=== PATIENT | male | born 1945 | race Caucasian/White ===

== ENCOUNTER → 2017-03-21 | Outpatient (CLI) | payer MEDICARE, BC ==
--- NOTE | 2017-03-21 14:21 | CONS ---
CONSULTATION DATE OF SERVICE: 03/21/2017 A 72-year-old gentleman who has been evaluated in the Sleep Center for possible obstructive sleep apnea-hypopnea syndrome. HISTORY OF PRESENT ILLNESS/SLEEP WAKE EVALUATION: Patient usual sleep schedule from 11:30 p.m. until 7:30 a.m. basically 7 days a week. No problem with falling asleep, although he has TV set in bedroom. According to his , he snores. Has episodes of stopped breathing during the sleep. He wakes up from sleep 2 times with nocturia. His also mentioned that he has sometimes significant movements of his legs during the sleep. [place] Sleepiness Scale increased to 10. He may fall asleep during the day, has problem with memory, debility, claustrophobia. PAST MEDICAL HISTORY: Positive for hypertension, hyperlipidemia, diabetes mellitus, acid reflux. PAST SURGICAL HISTORY: Aortic aneurysm repair, aortic valve replacement, carotid tumor removed, lung surgery for pneumoniae and spontaneous pneumothorax at the time when he had pneumonia. MEDICATIONS: Lipitor, aspirin, lisinopril, amlodipine, metoprolol, metformin, ranitidine. SOCIAL HISTORY: Positive for smoking in the past, quit about 25 years ago. Alcohol consumption occasional. FAMILY HISTORY: Hypertension, heart problems, hyperlipidemia, sleep apnea, snoring, diabetes, cancer. REVIEW OF SYSTEMS: Awakenings from sleep, sleepiness during the day. PHYSICAL EXAM: A gentleman without distress. BP 131/67, HR 68, RR 16, height 5, 7-1/2, weight 239, BMI 36.8, temp 98.0, oxygen desaturation at room air 95%. OROPHARYNX: Extremely low position of soft palate, Mallampati 4. Some restriction of nasal breathing. Wide neck 17-1/2 inches in circumference. Scar on the chest after the surgery. ABDOMEN: Obese. EXTREMITIES: 1+ ankle edema. HEART S1, S2 regular. No murmurs, gallops, or rubs. TRAVELING ENGINEER Awake, alert, and oriented X3. Cranial nerves 2 to 7 intact. There is no fasciculation or atrophy. noted. No focal deficits observed. IMPRESSION: 1. Snoring, witnessed episodes of stopped breathing during the sleep. Extremely low position of soft palate, wide neck, sleepiness. [place] Sleepiness Scale is 10. Obstructive sleep apnea-hypopnea syndrome. 2. Obesity; body mass index of 36.8. 3. Hypertension. 4. Hyperlipidemia. 5. Diabetes mellitus. 6. Acid reflux. 7. Status post aortic aneurysmal repair. 8. Status post aortic valve replacement. 9. Status post carotid tumor removed. 10.History of pneumonia with pneumothorax, status post surgical treatment about 25 years ago. PLAN: 1. Polysomnography for evaluation of patient's breathing during sleep. 2. CPAP/BiPAP titration if sleep study confirms obstructive sleep apnea-hypopnea syndrome. 3. Preferable position during sleep on the side. 4. No driving if patient feels any sleepiness. Patient is aware of civil and criminal liability for unsafe driving. 5. I will see patient for follow up visit to explain results of testing and following plan. Thank you very much for referring this patient for consultation. Sincerely, Toño Banerjee MD, PhD, FAASM Diplomat of [place] Board [employer] Specialties [place] Board of Internal Medicine Gear Design Engineer of [facility] [place] MMODL / JONNATHANN: [id number] /
== END | disposition home or self-care (01) ==
LOC: SLEEP 13:12
PROVIDERS: ATTEND Internal Medicine
DX: G47.33 Obstructive sleep apnea (adult) (pediatric) (principal); E66.9 Obesity, unspecified; I10 Essential (primary) hypertension; E78.5 Hyperlipidemia, unspecified; E11.9 Type 2 diabetes mellitus without complications; K21.9 Gastro-esophageal reflux disease without esophagitis; Z68.36 Body mass index [BMI] 36.0-36.9, adult; Z98.890 Other specified postprocedural states
CPT/HCPCS: 99211

== ENCOUNTER 2017-05-17 08:02 | Day surgery (SDC) | payer MEDICARE, BC ==
[2017-05-15 16:25] VITALS: BMI 34.4
[~2017-05-17 08:02] MED LIST: LACTATED RINGERS 1,000 ML IV SCH; LIDOCAINE 1% 20 ML VIAL (10MG/ML) FOR IV START INTRADERMA PRN
[2017-05-17 08:26] VITALS: TEMP 99
[2017-05-17] MEDS ORDERED: PROPOFOL 10 MG/ML 20 ML VIAL IV ONE (08:44)
[2017-05-17] MEDS ORDERED: MIDAZOLAM 2 MG/2 ML VIAL ONE (08:44)
[2017-05-17] MEDS ORDERED: fentaNYL (PF) 50 MCG/ML 2 ML AMP ONE (08:44)
[2017-05-17 08:50] LABS: Glucose,Whole Blood 140 mg/dL (75-99)
--- NOTE | 2017-05-17 09:06 | P.PCN ---
Date of Procedure: 05/17/17 Procedure(s) Performed: BRIEF HISTORY: Patient is a 72-year-old pleasant male, scheduled for an elective colonoscopy as a part of screening for colorectal neoplasia. Last colonoscopy was 10 years ago. PROCEDURE PERFORMED: Colonoscopy with snare polypectomy. PREOPERATIVE DIAGNOSIS: Screening for colon cancer. IV sedation per Anesthesia. PROCEDURE: After informed consent was obtained, the patient, was brought into the endoscopy unit. IV sedation was administered by Anesthesia under continuous monitoring. Digital rectal examination was normal. Initially the Olympus CF- 160 flexible video colonoscope was then inserted in the rectum, gradually advanced into the cecum without any difficulty. Careful examination was performed as the scope was gradually being withdrawn. Ileocecal valve and the appendiceal orifice were visualized and appeared normal. Prep was excellent. Mucosa of the cecum, ascending colon, transverse colon, descending colon, sigmoid colon, appeared normal. In the distal sigmoid colon there was 2 polyps measuring 5 mm and 1 cm in size both of which were removed by snare polypectomy. The rectum appeared normal. Retroflexion was performed in the rectum and no lesions were seen. The patient tolerated the procedure well. IMPRESSION: 5 mm and 1 cm distal sigmoid colon polyp status post polypectomy Rest of the colon appeared normal RECOMMENDATIONS: Findings of this examination were discussed with the patient as well as his family. He was advised to follow with the biopsy results. If the biopsy shows a tubular adenoma, he can have a repeat colonoscopy in 3-5 years
[2017-05-17 09:24] VITALS: BP 133/82; PULSE 72; RESP 18
== END 2017-05-17 09:53 | disposition home or self-care (01) ==
LOC: ORWHC2ENDO 08:02
PROVIDERS: ATTEND Internal Medicine Gastroenterology
DX: Z12.11 Encounter for screening for malignant neoplasm of colon (principal); D12.5 Benign neoplasm of sigmoid colon; K21.9 Gastro-esophageal reflux disease without esophagitis; E11.9 Type 2 diabetes mellitus without complications; G47.33 Obstructive sleep apnea (adult) (pediatric); I10 Essential (primary) hypertension; E78.5 Hyperlipidemia, unspecified; Z95.2 Presence of prosthetic heart valve; Z79.84 Long term (current) use of oral hypoglycemic drugs; Z79.899 Other long term (current) drug therapy; Z79.82 Long term (current) use of aspirin; Z99.89 Dependence on other enabling machines and devices
CPT/HCPCS: 88305; 45385; J2250; J3010; J2704

== ENCOUNTER → 2017-08-08 | Outpatient (CLI) | payer MEDICARE, BC ==
--- NOTE | 2017-08-08 14:08 | SFUN ---
SLEEP CENTER FOLLOW UP NOTE DATE OF SERVICE: 08/08/2017 A 72-year-old gentleman who has been followed in the Sleep Center for treatment of obstructive sleep apnea-hypopnea syndrome. Recently patient had diagnostic sleep study and CPAP and then BiPAP titration. He received his on BiPAP unit. I discussed results of the sleep studies with patient in details. This is his first visit with his BiPAP unit. He is able to use machine every night without significant problems, feels better during the sleep and during the day. I checked his BiPAP unit, pressure is 10/6 cm of water, usage is 29/30 nights more than 4 hours. Average usage is 7.1 hours per night which is perfect. Leak is only 10 L/minute which is still within normal range. Apnea-hypopnea index for the last month 1.6, which is normal. MEDICATIONS: Lipitor, aspirin, lisinopril, amlodipine, metoprolol, Ranitidine. PHYSICAL EXAM: Patient in no distress, BP 130/70, HR 58, RR 16, weight 226, temp 97.3, oxygen saturation at room air 95%. OROPHARYNX: Extremely low position of soft palate. ABDOMEN: Slightly obese. Neck Supple, no JVD. Thyroid is not palpable. LUNGS Clear to percussion and to auscultation. Good air exchange. No wheezing or rhonchi. HEART S1, S2 regular. No murmurs, gallops, or rubs. EXTREMITIES No clubbing or cyanosis. SEXUAL ASSAULT NURSE Awake, alert, and oriented X3. Cranial nerves 2 to 7 intact. There is no fasciculation or atrophy. noted. No focal deficits observed. IMPRESSION: 1. Severe obstructive sleep apnea-hypopnea syndrome; apnea-hypopnea index 40.8 with oxygen desaturation to 75.6% on control with CPAP and BiPAP 10/6 cm of water. Patient demonstrated practically 100% compliance with treatment, benefitting from treatment. 2. Hypertension. 3. Hyperlipidemia. 4. Diabetes mellitus. 5. Acid reflux. 6. Status post aortic aneurysm repair. 7. Status post aortic valve replacement. 8. Many years ago pneumoniae with pneumothorax. 9. Status post carotid tumor removed. PLAN: 1. Patient will continue to use BiPAP equipment every night for the whole night. 2. Losing weight. 3. Sleep hygiene with regular time bed for at least 8 hours. 4. No driving if feeling any sleepiness. 5. Will follow with prescription supplies for mask, tube, filters. 6. Followup visit in 10 months or earlier if patient has any problems. Thank you very much for allowing me to participate in the management of your patient. Sincerely, Toño Banerjee MD, PhD, FAASM Diplomat of [place] [employer] Specialties [place] Board of Internal Medicine Tailing Machine Operator of [facility] [place] MMODL / JONNATHANN: [id number] /
== END | disposition home or self-care (01) ==
LOC: SLEEP 13:03
PROVIDERS: ATTEND Internal Medicine
DX: G47.33 Obstructive sleep apnea (adult) (pediatric) (principal); I10 Essential (primary) hypertension; E78.5 Hyperlipidemia, unspecified; E11.9 Type 2 diabetes mellitus without complications; K21.9 Gastro-esophageal reflux disease without esophagitis; Z99.89 Dependence on other enabling machines and devices; Z79.899 Other long term (current) drug therapy; Z79.82 Long term (current) use of aspirin; Z98.890 Other specified postprocedural states; Z95.4 Presence of other heart-valve replacement; Z86.018 Personal history of other benign neoplasm

== ENCOUNTER → 2018-08-07 | Outpatient (CLI) | payer MEDICARE, BC ==
--- NOTE | 2018-08-07 11:17 | PN ---
PROGRESS NOTE DATE OF SERVICE: 08/07/2018 73-year-old gentleman has been followed in Sleep Center for treatment of severe obstructive sleep apnea-hypopnea syndrome. Patient successfully continued to use his BiPAP equipment every night without problems related to mask fitting, pressure or humidification. Very rarely, according to his , he has slight snoring. [place] Sleepiness Scale today is 5, which is normal. I checked his BiPAP unit pressure is 10/6 cm of water. Usage is 30/30 nights more than 4 hours. Average usage is 6.8 hours. Leak is 12 L/minute, which is normal range. Apnea-hypopnea index for the last month to 2.9, which is normal. MEDICATIONS: Lisinopril, amlodipine, metoprolol, Ranitidine, Lipitor, aspirin and Metformin. PHYSICAL EXAM: Patient in no distress. VITAL SIGNS: BP 143/62, HR 72, RR 16, height 5 feet 7 inches, weight 237 pounds. Patient increased his weight of 11 pounds comparing with last year visit. Body mass index 36.9, temperature 98.0, oxygen saturation at room air 96%. HEENT: Oropharynx extremely low position of soft palate. NECK Supple, no JVD. Thyroid is not palpable. LUNGS Clear to percussion and to auscultation. Good air exchange. No wheezing or rhonchi. HEART S1, S2 regular. No murmurs, gallops, or rubs. ABDOMEN: Slightly obese. Soft and nontender. Bowel sounds are present. No organomegaly appreciated. EXTREMITIES No clubbing or cyanosis. CLASP MACHINE OPERATOR Awake, alert, and oriented X3. Cranial nerves 2 to 7 intact. There is no fasciculation or atrophy. noted. No focal deficits observed. IMPRESSION: 1. Severe obstructive sleep apnea-hypopnea syndrome, AHI 40.8 on control with BiPAP at 10/6 cm of water. Patient demonstrated great compliance with treatment benefitting from treatment. 2. Hypertension. 3. Diabetes. 4. Hyperlipidemia. 5. Acid reflux. 6. Status post aortic aneurysm repair. 7. Status post aortic valve replacement. 8. History of pneumothorax many years ago during pneumonia. 9. Status post carotid tumor removed. PLAN: 1. Patient will continue to use BiPAP equipment every night for the whole night. 2. Losing weight. 3. Sleep hygiene with regular time bed for 8 hours. 4. No driving if feeling sleepiness. 5. I will maintain all necessary prescription for mask, tube, filters of his BiPAP unit. Thank you very much for allowing me to participate in management of your patient. Sincerely, Toño Banerjee MD, PhD, FAASM Diplomat of [place] Board of Medical Specialties [place] Board of Internal Medicine Information Clerk of [facility] [place] [id number] / CALVIN: [id number] /
== END ==
LOC: SLEEP 10:01
PROVIDERS: ATTEND Internal Medicine
DX: G47.33 Obstructive sleep apnea (adult) (pediatric) (principal); I10 Essential (primary) hypertension; E11.9 Type 2 diabetes mellitus without complications; E78.5 Hyperlipidemia, unspecified; K21.9 Gastro-esophageal reflux disease without esophagitis; Z95.2 Presence of prosthetic heart valve; Z98.890 Other specified postprocedural states; Z99.89 Dependence on other enabling machines and devices; Z79.899 Other long term (current) drug therapy; Z79.84 Long term (current) use of oral hypoglycemic drugs; Z79.82 Long term (current) use of aspirin

== ENCOUNTER → 2019-10-29 | Outpatient (CLI) | payer MEDICARE, BC ==
--- NOTE | 2019-10-29 17:04 | SFUN ---
SLEEP CENTER FOLLOW UP NOTE DATE OF SERVICE: 10/29/2019 HISTORY OF PRESENT ILLNESS: A 74-year-old gentleman who has been followed in the Sleep Center for treatment of obstructive sleep apnea hypopneas syndrome. The patient successfully continued to use his BiPAP equipment every night. Occasionally, he has snoring while using machine according to his . [place] Sleepiness Scale today is 5 which is normal. I checked his BiPAP unit, pressure is 10/6 cm of water, with usage 30/30 nights and 24/30 nights for more than 4 hours. Average usage is 6.2 hours per night. Leak is 16 L/minutes which is borderline. Apnea-hypopnea index 1.0, which is normal. MEDICATIONS: Lisinopril, amlodipine, metoprolol, ranitidine, Lipitor, aspirin, metformin. PHYSICAL EXAM: Patient in no distress, BP 154/75, HR 76, RR 14, height 5 feet 7-3/4 inches, weight 238.6 pounds, temperature 98.3, oxygen saturation at room air 95%. OROPHARYNX: Extremely low position of soft palate. Mallampati 4. NECK: Supple, no JVD. Thyroid is not palpable. LUNGS: Clear to percussion and to auscultation. Good air exchange. No wheezing or rhonchi. HEART: S1, S2 regular. No murmurs, gallops, or rubs. ABDOMEN: Obese. EXTREMITIES: No clubbing or cyanosis. RETAIL SALES VITAMIN CONSULTANT: Awake, alert, and oriented X3. Cranial nerves 2 to 7 intact. There is no fasciculation or atrophy. noted. No focal deficits observed. IMPRESSION: 1. Severe obstructive sleep apnea-hypopnea syndrome; apnea-hypopnea index 40.8, on control with BiPAP, great compliance with treatment, benefitting from treatment. Occasional snoring with the machine. 2. Hypertension. 3. Diabetes mellitus. 4. Hyperlipidemia. 5. Acid reflux. 6. Status post aortic aneurysm repair. 7. Status post aortic valve replacement. 8. History of pneumothorax many years ago during pneumonia. 9. Status post carotid tumor removed. PLAN: 1. Patient will continue to use PAP equipment every night for the whole night. 2. Sleep hygiene with regular time in bed for at least 7-1/2 to 8 hours. 3. Precautions related to driving. No driving if feeling sleepiness. 4. I will maintain all necessary prescription for PAP supplies including mask, tube, filters. 5. Watching weight. 6. No driving if feeling sleepiness. 7. Follow-up visit in 6 months or earlier if patient has any problems. 8. I changed regimen in the machine to automatic BiPAP in maximal IPAP 15, minimal EPAP 6. 9. Followup visit in 6 months. Thank you very much for allowing me to participate in management of your patient. Sincerely, Toño Banerjee MD, PhD, FAASM Diplomat of [place] Board of Medical Specialties [place] Board of Internal Medicine Computational Biologist of [facility] [place] MMODL / IJN: [id number] /
== END | disposition home or self-care (01) ==
LOC: SLEEP 14:16
PROVIDERS: ATTEND Internal Medicine
DX: G47.33 Obstructive sleep apnea (adult) (pediatric) (principal); I10 Essential (primary) hypertension; E11.9 Type 2 diabetes mellitus without complications; E78.5 Hyperlipidemia, unspecified; K21.9 Gastro-esophageal reflux disease without esophagitis; Z95.4 Presence of other heart-valve replacement; Z99.89 Dependence on other enabling machines and devices; Z98.890 Other specified postprocedural states

== ENCOUNTER → 2020-04-21 | Outpatient (CLI) | payer MEDICARE, BC ==
--- NOTE | 2020-04-21 19:49 | SFUN ---
SLEEP CENTER FOLLOW UP NOTE DATE OF SERVICE: 04/21/2020 This is a 75-year-old gentleman who has been followed in Sleep Center for treatment of obstructive sleep apnea-hypopnea syndrome. During his previous visit, I changed the patient's pressure in his BiPAP unit because he had episodes of snoring, according to his . At present, no snoring. The patient sleeps well and likes his machine and his mask. I checked the BiPAP unit. Maximal inspiratory pressure 15, minimal expiratory pressure 6, pressure support 4, 30/30 nights for more than 4 hours. Leak is 13 L/minute, which is normal range. Apnea-hypopnea index only 0.8, which is totally normal. [place] Sleepiness Scale today is 4. MEDICATIONS: 1. Famotidine 20 mg twice a day. 2. Amlodipine 10 mg once a day. 3. Metoprolol 25 mg once a day. 4. Lisinopril 20 mg twice a day. 5. Atorvastatin 10 mg once a day. 6. Metformin 500 mg two tablets once a day. 7. Aspirin, enteric-coated, 325 mg once a day. 8. Vitamin D supplement. PHYSICAL EXAMINATION: GENERAL: A pleasant patient in no distress. VITAL SIGNS: BP 151/79, HR 69, RR 18, height 5 feet 8-1/4 inches, weight 245.6 pounds, oxygen saturation 96%. BMI 37.2. HEENT: PERRLA, EOMI. Evaluation of oropharynx showed tongue protrudes midline. Extremely low position of soft palate. Mallampati IV. NECK: Supple. No JVD. Thyroid is not palpable. LUNGS: Clear to percussion and to auscultation. Good air exchange. No wheezing or rhonchi. HEART: S1, S2 regular. No murmurs, gallops or rubs. ABDOMEN: Obese. EXTREMITIES: No clubbing or cyanosis. SHOT CORE DRILL OPERATOR: Awake, alert, and oriented X3. Cranial nerves 2 to 7 intact. There is no fasciculation or atrophy. noted. No focal deficits observed. IMPRESSION: 1. Severe obstructive sleep apnea-hypopnea syndrome; apnea-hypopnea index . The patient demonstrated great compliance with treatment, benefitting from treatment. 2. Hypertension. 3. Diabetes mellitus. 4. Hyperlipidemia. 5. Acid reflux. 6. Status post aortic aneurysm repair. 7. Status post aortic valve replacement. 8. History of pneumothorax many years ago during pneumonia. PLAN: 1. Patient will continue to use PAP equipment every night for the whole night. 2. Sleep hygiene with regular time in bed for at least 7-1/2 to 8 hours. 3. Precautions related to driving. No driving if feeling sleepiness. 4. I will maintain all necessary prescription for PAP supplies including mask, tube, filters. 5. Watching weight. 6. No driving if feeling sleepiness. 7. Follow-up visit in 6 months or earlier if patient has any problems. Thank you very much for allowing me to participate in the management of your patient. Sincerely, Toño Banerjee MD, PhD, FAASM Diplomat of [place] Board of Medical Specialties Chinese Board of Internal Medicine Spring Clipper of [facility] [place] MMODL / JONNATHANN: [id number] /
== END | disposition home or self-care (01) ==
LOC: SLEEP 11:27
PROVIDERS: ATTEND Internal Medicine
DX: G47.33 Obstructive sleep apnea (adult) (pediatric) (principal); I10 Essential (primary) hypertension; E11.9 Type 2 diabetes mellitus without complications; E78.5 Hyperlipidemia, unspecified; K21.9 Gastro-esophageal reflux disease without esophagitis; Z86.79 Personal history of other diseases of the circulatory system; Z95.2 Presence of prosthetic heart valve; Z99.89 Dependence on other enabling machines and devices; Z79.891 Long term (current) use of opiate analgesic; Z79.899 Other long term (current) drug therapy; Z79.82 Long term (current) use of aspirin; Z79.84 Long term (current) use of oral hypoglycemic drugs; Z87.01 Personal history of pneumonia (recurrent)

== ENCOUNTER → 2020-10-27 | Outpatient (CLI) | payer MEDICARE, BC ==
--- NOTE | 2020-10-27 23:06 | SFUN ---
SLEEP CENTER FOLLOW UP NOTE DATE OF SERVICE: 10/27/2020. 75-year-old gentleman has been followed in Sleep Center for treatment of obstructive sleep apnea-hypopnea syndrome. The patient continues to use his BiPAP equipment every night for the whole night. No snoring with the machine. The patient received all his supplies in time. [place] Sleepiness Scale today is 6, which is normal. I checked his BiPAP unit. Maximal inspiratory pressure 15, minimal expiratory pressure 6, pressure support 4. Usage is 100% of nights and 29/30 nights more than 4 hours, average 6.6 hours per night. Leak is 23 L/minute, which is borderline. Apnea-hypopnea index is 0.9 which is totally perfect. MEDICATIONS: Metformin 500 mg 2 tablets once a day, lisinopril 20 mg one tablet twice a day, amlodipine 10 mg one tablet once a day, metoprolol 25 mg one tablet once a day, atorvastatin 10 mg one tablet once a day, omeprazole 20 mg once a day, aspirin 325 mg once a day. PHYSICAL EXAMINATION: GENERAL: Patient in no distress. BP 157/70, HR 78, RR 15, height 5 feet 7-1/4 inches, weight 237 pounds. The patient lost about 8 pounds since previous visit. Body mass index 37.1, temperature 98.2, oxygen saturation at room air 95%. Oropharynx extremely low position of soft palate, Mallampati IV. NECK: Supple, no JVD. Thyroid is not palpable. LUNGS: Clear to percussion and to auscultation. Good air exchange. No wheezing or rhonchi. HEART: S1, S2 regular. No murmurs, gallops, or rubs. ABDOMEN: Obese. Soft and nontender. Bowel sounds are present. No organomegaly appreciated. EXTREMITIES: No clubbing or cyanosis. LONG WALL MINING MACHINE HELPER: Awake, alert, and oriented X3. Cranial nerves 2 to 7 intact. There is no fasciculation or atrophy. noted. No focal deficits observed. IMPRESSION: 1. Severe obstructive sleep apnea-hypopnea syndrome. The patient demonstrated 100% compliance with BiPAP treatment, benefitting from treatment. 2. Hypertension. 3. Diabetes mellitus. 4. Hyperlipidemia. 5. Acid reflux. 6. Status post aortic aneurysm repair. 7. Status post aortic valve replacement. 8. History of pneumothorax many years ago during pneumonia. PLAN: 1. Patient will continue to use PAP equipment every night for the whole night. 2. Sleep hygiene with regular time in bed for at least 7-1/2 to 8 hours. 3. Precautions related to driving. No driving if feeling sleepiness. 4. I will maintain all necessary prescription for PAP supplies including mask, tube, filters. 5. Watching weight. 6. Follow-up visit in 6 months or earlier if patient has any problems. Thank you very much for allowing me to participate in management of your patient. Sincerely, Toño Banerjee MD, PhD, FAASM Diplomat of [place] Board of Medical Specialties Sleep Medicine Board of [place] Board of Internal Medicine Bevel Operator of [facility] [place] MMODL / IJN: [id number] /
== END ==
LOC: SLEEP 11:18
PROVIDERS: ATTEND Internal Medicine
DX: G47.33 Obstructive sleep apnea (adult) (pediatric) (principal); I10 Essential (primary) hypertension; E11.9 Type 2 diabetes mellitus without complications; E78.5 Hyperlipidemia, unspecified; K21.9 Gastro-esophageal reflux disease without esophagitis; Z87.09 Personal history of other diseases of the respiratory system; Z86.79 Personal history of other diseases of the circulatory system; Z98.890 Other specified postprocedural states; Z99.89 Dependence on other enabling machines and devices; Z79.82 Long term (current) use of aspirin; Z79.84 Long term (current) use of oral hypoglycemic drugs; Z79.899 Other long term (current) drug therapy; Z87.891 Personal history of nicotine dependence

== ENCOUNTER → 2022-01-03 | Outpatient (CLI) | payer MEDICARE, BC ==
--- NOTE | 2022-01-03 11:09 | P.PN ---
Subjective DATE: 01/03/2022 FOLLOW UP VISIT. Patient with obstructive sleep apnea hypopnea syndrome return to sleep center for follow-up visit. Information from previous visit have been reviewed. Patient is using BIPAP equipment every night for the whole night, getting PAP supplies in time. The patient does not have significant problems with the mask, PAP unit and humidification. Sometimes when she wakes up in the middle of the night he feels that pressure is too high. [place] sleepiness scale is 5, which is normal. I checked BIPAP unit. BIPAP unit pressure maximal inspiratory pressure 15, minimal expiratory pressure 6, average pressure 14/10 cm H2O. Usage is 100 % for more then 4 hours, average 7 hours per night. Leak is 37 l/m, which is in increased range. Apnea Hypopnea Index is 1.3, which is normal. MEDICATIONS:1. Famotidine 20 mg twice a day 2. Amlodipine 10 mg once a day 3. Metoprolol 25 mg once a day 4. Lisinopril 20 mg twice a day 5. Atorvastatin 10 mg once a day 6. Metformin 500 mg 2 tablets in the evening 7. Ecotrin 325 mg once a day 8. Farxiga 10 mg half tablets once a day During physical exam: GENERAL: A pleasant patient without any distress. VITAL SIGNS: BP 156/74, HR 64, RR 16 , weight 224.6, temperature 96.5, oxygen saturation at room air 95 % . HEENT: PERRLA, EOMI.low position of soft palate, Mallapati 4 . NECK: Supple. No JVD. LUNGS: Clear to percussion and to auscultation. Good air exchange. No wheezing or rhonchi. HEART: S1, S2 regular. ABDOMEN: Soft and nontender. Slightly obese EXTREMITIES: No clubbing or cyanosis. CLEAN ENERGY POLICY ANALYST: Awake, alert, and oriented x3. No focal deficit. Impressions: 1. Obstructive sleep apnea-hypopnea syndrome. Patient demonstrated great compliance with treatment, benefiting from treatment. 2. Hypertension. 3. Diabetes mellitus. 4. Acid reflux. 5. Hyperlipidemia. 6. Status post aortic aneurysm repair. 7. Status post aortic valve replacement. 8. History of pneumothorax secondary to pneumonia many years ago. Plan: 1. Continue using BPAP equipment every night for the whole night. I decreased maximal inspiratory pressure to 13 cm of water. 2. To change air filter at least 1-2 times per month. 3. PAP unit should stay lower then position of the head. 4. Advised patient to remove all remaining water from humidifier canister daily and make it dry after each usage. Refill canister with fresh distilled water before each usage. 5. Sleep hygiene with regular time in bed for at least 8 hours. 6. Precautions related to driving. No driving if feel any sleepiness. 7. I will maintain prescription for PAP supplies including mask, tube, filters. 8. Follow up visit in 4 months or earlier if patient has any problems. 9. Watching and losing weight. Thank you very much for allowing me to participate in the management of your patient. Toño Banerjee MD, PhD, FAASM. Diplomat of [place] Board of Sleep Medicine, Sleep Medicine Board by [place] Board of Internal Medicine Utility Technician of [facility] [place]
== END ==
LOC: SLEEP 10:06
PROVIDERS: ATTEND Internal Medicine
DX: G47.33 Obstructive sleep apnea (adult) (pediatric) (principal); I10 Essential (primary) hypertension; Z99.89 Dependence on other enabling machines and devices; E11.9 Type 2 diabetes mellitus without complications; K21.9 Gastro-esophageal reflux disease without esophagitis; E78.5 Hyperlipidemia, unspecified; Z87.891 Personal history of nicotine dependence; I71.9 Aortic aneurysm of unspecified site, without rupture; Z95.2 Presence of prosthetic heart valve; Z87.09 Personal history of other diseases of the respiratory system

== ENCOUNTER → 2022-08-02 | Outpatient (CLI) | payer MEDICARE, BC ==
--- NOTE | 2022-08-02 17:59 | CT ---
EXAMINATION TYPE: CT lumbar spine wo con DATE OF EXAM: 08/02/2022 COMPARISON: None HISTORY: low back pain, no injury CT DLP: 983 mGycm CONTRAST: None TECHNIQUE: CT of the lumbar spine is performed on a spiral scan at 3 mm thick sections. Reconstructed images are performed in the coronal and sagittal planes. FINDINGS: T12-L1: No focal disc herniation or significant disc bulge is evident. No spinal canal stenosis or neural foraminal stenosis is present. L1-L2: No focal disc herniation or significant disc bulge is evident. No spinal canal stenosis or n eural foraminal stenosis is present L2-L3: No focal disc herniation or significant disc bulge is evident. No spinal canal stenosis or n eural foraminal stenosis is present L3-L4: Broad-based disc bulge present with moderate anterior compression. Ligamentum flavum is contr ibuting to spinal canal stenosis. L4-L5: Broad-based disc bulge is moderate anterior compression ligamentum flavum laxity is evident in to spinal canal is almost L5-S1: No focal disc herniation or significant disc bulge is evident. No spinal canal stenosis or n eural foraminal stenosis is present Vertebral alignment appears normal. Sacroiliac joints have vacuum joint phenomenon. Note is made of p eripelvic cysts or hydronephrosis right kidney IMPRESSION: Broad-based disc bulging and ligamentum flavum laxity contribute to spinal canal stenosis at the L3-4 and L4-5 levels.
== END | disposition home or self-care (01) ==
LOC: RADCTMAIN 12:40
PROVIDERS: ATTEND Physical Medicine & Rehabilitation
DX: M47.817 Spondylosis without myelopathy or radiculopathy, lumbosacral region (principal); M43.16 Spondylolisthesis, lumbar region; M51.36 Other intervertebral disc degeneration, lumbar region; M48.061 Spinal stenosis, lumbar region without neurogenic claudication
CPT/HCPCS: 72131

== ENCOUNTER → 2022-09-06 | Outpatient (CLI) | payer MEDICARE, BC ==
--- NOTE | 2022-09-06 19:10 | US ---
EXAMINATION TYPE: US kidneys/renal and bladder DATE OF EXAM: 09/06/2022 COMPARISON: NONE CLINICAL INDICATION: Male, 77 years old with history of N28.1 CYST OF KIDNEY; Cyst EXAM MEASUREMENTS: Right Kidney: 11.1 x 6.4 x 4.7 cm Left Kidney: 13.2 x 5.9 x 4.2 cm Right Kidney: Midpole cyst measuring 4.0 x 4.5 x 3.9 cm. No calyceal dilatation to suggest hydronephr osis. Left Kidney: Exophytic upper or mid pole cyst measuring 4.2 x 3.3 x 3.4 cm. No hydronephrosis. Bladder: Underdistention limits its evaluation. Bilateral Jets seen: no IMPRESSION: 1. No hydronephrosis. 2. A central mid pole cyst right kidney measuring 4.5 cm and an exophytic cyst left kidney measuring 4.2 cm.
== END | disposition home or self-care (01) ==
LOC: RADUSWWP 12:22
PROVIDERS: ATTEND Internal Medicine
DX: N28.1 Cyst of kidney, acquired (principal)
CPT/HCPCS: 76770

== ENCOUNTER → 2022-11-07 | Outpatient (CLI) | payer MEDICARE, BC ==
--- NOTE | 2022-11-07 11:54 | P.PN ---
Subjective DATE: 11/07/2022 FOLLOW UP VISIT. Patient with obstructive sleep apnea hypopnea syndrome return to sleep center for follow-up visit. Information from previous visit have been reviewed. Patient is using PAP equipment every night for the whole night, getting PAP supplies in time. The patient does not have significant problems with the PAP unit and humidification, but feels small discomfort related to the mask. [place] sleepiness scale is borderline 10. I checked information from PAP unit. PAP unit pressure maximal inspiratory pressure 13, minimal expiratory pressure 6.0, average pressure 12/8 cm H2O. Usage is 100 % but short, average 3.2 hours per night. Leak is 18 l/m, which is in acceptable range. Apnea Hypopnea Index is 1.9, which is normal. MEDICATIONS:1. Metoprolol 25 mg once a day 2. Lisinopril 20 mg twice a day 3. , Amlodipine 10 mg once a day 4. Metformin 500 mg twice a day 5. Famotidine 20 mg twice a day 6. Ecotrin 325 mg once a day 7. Farxiga During physical exam: GENERAL: A pleasant patient without any distress. VITAL SIGNS: BP 112/64, HR 66, RR 12 , weight 220.6, temperature 98.0, oxygen saturation at room air 96 % . HEENT: PERRLA, EOMI.low position of soft palate, Mallapati 4 . NECK: Supple. No JVD. LUNGS: Clear to percussion and to auscultation. Good air exchange. No wheezing or rhonchi. HEART: S1, S2 regular. ABDOMEN: Soft and nontender. Slightly obese EXTREMITIES: No clubbing or cyanosis. 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 No focal deficit. Impressions: 1. Obstructive sleep apnea-hypopnea syndrome. Patient demonstrated great compliance with treatment, benefiting from treatment. 2. Obesity BMI 35.6, patient lost 5 pounds comparing with previous visit. 3. Hypertension. 4. Diabetes mellitus. 5. History of pneumothorax secondary to pneumonia many years ago. 6. Hyperlipidemia. 7. Acid reflux. 8. Status post aortic aneurysm repair. 9. Status post aortic valve replacement. Plan: 1. Continue using PAP equipment every night for the whole night. Patient will use different type of mask. 2. To change air filter at least 1-2 times per month. 3. PAP unit should stay lower then position of the head. 4. Advised patient to remove all remaining water from humidifier canister daily and make it dry after each usage. Refill canister with fresh distilled water before each usage. 5. Sleep hygiene with regular time in bed for at least 8 hours. 6. Precautions related to driving. No driving if feel any sleepiness. 7. I will maintain prescription for PAP supplies including mask, tube, filters. 8. Follow up visit in 6 months or earlier if patient has any problems. 9. Watching and losing weight. Thank you very much for allowing me to participate in the management of your patient. Toño Banerjee MD, PhD, FAASM. Diplomat of [place] [employer], Sleep Medicine Board by [place] [employer] Wheel [employer]er of [facility] [place]
== END ==
LOC: 3 N SLEEP 11:06
PROVIDERS: ATTEND Internal Medicine
DX: G47.33 Obstructive sleep apnea (adult) (pediatric) (principal); E66.9 Obesity, unspecified; E78.5 Hyperlipidemia, unspecified; E11.9 Type 2 diabetes mellitus without complications; I10 Essential (primary) hypertension; K21.9 Gastro-esophageal reflux disease without esophagitis; Z68.35 Body mass index [BMI] 35.0-35.9, adult; Z79.84 Long term (current) use of oral hypoglycemic drugs; Z79.899 Other long term (current) drug therapy; Z95.2 Presence of prosthetic heart valve; Z98.890 Other specified postprocedural states; Z99.89 Dependence on other enabling machines and devices; Z87.891 Personal history of nicotine dependence
CPT/HCPCS: 99212

== ENCOUNTER 2023-02-13 08:03 | Day surgery (SDC) | payer MEDICARE, BC ==
[~2023-02-13 08:03] MED LIST changes: +LIDOCAINE 1% (10MG/ML) FOR IV START INTRADERMA PRN; -LIDOCAINE 1% 20 ML VIAL (10MG/ML) FOR IV START INTRADERMA PRN
[2023-02-13 08:44] LABS: Glucose,Whole Blood 105 mg/dL (70-110)
[2023-02-13 09:07] VITALS: RESP 16; TEMP 97.3
[2023-02-13] MEDS ORDERED: PROPOFOL 10 MG/ML 20 ML VIAL IV ONE (09:47)
[2023-02-13] MEDS ORDERED: LIDOCAINE 1% INJ 10MG/ML (20 ML MDV) ONE (09:47)
--- NOTE | 2023-02-13 10:12 | P.PCN ---
Date of Procedure: 02/13/23 Procedure(s) Performed: BRIEF HISTORY: Patient is a 78-year-old pleasant white male scheduled for an elective colonoscopy as a part of evaluation of prior history of colon polyps. Last coloscopy was 5 years ago. PROCEDURE PERFORMED: Colonoscopy. PREOPERATIVE DIAGNOSIS: History of colon polyps. IV sedation per Anesthesia. PROCEDURE: After informed consent was obtained, the patient, was brought into the endoscopy unit. IV sedation was administered by Anesthesia under continuous monitoring. Digital rectal examination was normal. Initially the Olympus CF-160 flexible video colonoscope was then inserted in the rectum, gradually advanced into the cecum without any difficulty. Careful examination was performed as the scope was gradually being withdrawn. Ileocecal valve and the appendiceal orifice were visualized and appeared normal. Prep was excellent. Mucosa of the cecum, ascending colon, transverse colon, descending colon, sigmoid colon, and rectum appeared normal. Scattered similar diverticulosis. Retroflexion was performed in the rectum and no lesions were seen. The patient tolerated the procedure well. IMPRESSION: Normal-appearing colon from rectum to cecum with no evidence of colorectal neoplasia. Scattered sigmoidal reticulosis. RECOMMENDATIONS: Findings of this examination were discussed with the patient as well as his family. He was advised to be a high-fiber diet..
[2023-02-13 10:37] VITALS: BP 130/75; PULSE 58
== END 2023-02-13 11:14 ==
LOC: ORWHC2ENDO 08:03
PROVIDERS: ATTEND Internal Medicine Gastroenterology
DX: Z12.11 Encounter for screening for malignant neoplasm of colon (principal); K57.30 Diverticulosis of large intestine without perforation or abscess without bleeding; Z86.010 Personal history of colon polyps; I10 Essential (primary) hypertension; E78.5 Hyperlipidemia, unspecified; G47.33 Obstructive sleep apnea (adult) (pediatric); E11.9 Type 2 diabetes mellitus without complications; N39.0 Urinary tract infection, site not specified; K21.9 Gastro-esophageal reflux disease without esophagitis; Z79.84 Long term (current) use of oral hypoglycemic drugs; Z79.82 Long term (current) use of aspirin; Z79.899 Other long term (current) drug therapy
CPT/HCPCS: J2001; J2704; G0105; 45378

== ENCOUNTER → 2023-02-26 | Outpatient (CLI) | payer MEDICARE, BC ==
--- NOTE | 2023-02-28 08:46 | NM ---
EXAMINATION TYPE: NM DatScan Brain SPECT DATE OF EXAM: 02/26/2023 COMPARISON: NONE HISTORY: Abnormal gait TECHNIQUE: 10 drops of Lugol's solution was administered 1 hour prior to injection as a thyroid bloc vic agent. After the administration of 4.42 mCi I-123 Ioflupane DaTscan. Images obtained 3 hours p ost injection. SPECT images of the brain were acquired with axial and coronal reconstructions. FINDINGS: The axial SPECT images demonstrate increased background activity and reduced activity withi n the bilateral striata. IMPRESSION: Abnormal appearance highly suggestive of idiopathic Parkinson's disease or Parkinsonian s yndrome.
== END | disposition home or self-care (01) ==
LOC: RADNMMAIN 10:25
PROVIDERS: ATTEND Internal Medicine
DX: R26.9 Unspecified abnormalities of gait and mobility (principal)
CPT/HCPCS: 78803; A9584

== ENCOUNTER → 2023-05-22 | Outpatient (CLI) | payer MEDICARE, BC ==
[2023-05-22 18:34] LABS: T4, Free (Free Thyroxine) 1.23 ng/dL (0.80-1.80)
== END | disposition home or self-care (01) ==
LOC: LABWHC1 12:46
PROVIDERS: ATTEND Psychiatry & Neurology Neurology
DX: G20.A1 Parkinson's disease without dyskinesia, without mention of fluctuations (principal); R00.1 Bradycardia, unspecified; R41.3 Other amnesia; R89.1 Abnormal level of hormones in specimens from other organs, systems and tissues
CPT/HCPCS: 36415; 82607; 84207; 84439; 84443; 85652; 86618

== ENCOUNTER → 2023-06-06 | Outpatient (CLI) | payer MEDICARE, BC ==
[2023-06-06 12:08] VITALS: BP 118/69; PULSE 76; RESP 16; TEMP 97.7
--- NOTE | 2023-06-06 12:32 | P.PN ---
Subjective DATE: 06/06/2023 FOLLOW UP VISIT. Patient with obstructive sleep apnea hypopnea syndrome return to sleep center for follow-up visit. Information from previous visit have been reviewed. Patient is using PAP equipment every night for the whole night, getting PAP supplies in time. The patient does not have significant problems with the mask, PAP unit and humidification. [place] sleepiness scale is 10, which is borderline. I checked information from PAP unit. PAP unit pressure maximal inspiratory pressure 13, minimal expiratory pressure 6, average pressure 12.4/8.4 cm H2O. Usage is 50% for more then 4 hours, average for hours per night. Leak is 8 l/m, which is in acceptable range. Apnea Hypopnea Index is 4.8, which is normal. MEDICATIONS:1. Metoprolol 25 mg once a day 2. Lisinopril 20 mg twice a day 3. Tamsulosin 0.4 mg once a day 4. Oxybutynin 5 mg once a day 5. Aspirin 325 mg once a day 6. Farxiga 10 mg once a day 7. Atorvastatin 20 mg once a day 8. Carbidopa-levodopa During physical exam: GENERAL: A pleasant patient without any distress. VITAL SIGNS: Please see below. HEENT: PERRLA, EOMI.low position of soft palate, Mallapati[] . NECK: Supple. No JVD. LUNGS: Clear to percussion and to auscultation. Good air exchange. No wheezing or rhonchi. HEART: S1, S2 regular. ABDOMEN: Soft and nontender.[] EXTREMITIES: No clubbing or cyanosis. 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 No focal deficit. Impressions: 1. Obstructive sleep apnea-hypopnea syndrome. Patient demonstrated borderline compliance with treatment, benefiting from treatment. 2. Parkinson's disease, recently diagnosed. 3. Obesity, BMI 31.9, patient lost 19 pounds since previous visit. 4. Hypertension. 5. Diabetes mellitus. 6. Hyperlipidemia. 7. Acid reflux. 8. History of pneumothorax secondary to pneumonia many years ago. 9. Status post aortic aneurysm repair. 10. Status post aortic valve replacement. I changed pressure in BiPAP unit, increased maximal inspiratory pressure to 14 cm of water. Prescription for a different type of full facemask have been written (Jh S-M size). Plan: 1. Continue using PAP equipment every night for the whole night, patient promised to follow recommendations. 2. To change air filter at least 1-2 times per month. 3. PAP unit should stay lower then position of the head. 4. Advised patient to remove all remaining water from humidifier canister daily and make it dry after each usage. Refill canister with fresh distilled water before each usage. 5. Sleep hygiene with regular time in bed for at least 8 hours. 6. Precautions related to driving. No driving if feel any sleepiness. 7. I will maintain prescription for PAP supplies including mask, tube, filters. 8. Watching weight. 9. Follow up visit in 6 months or earlier if patient has any problems. Thank you very much for allowing me to participate in the management of your patient. Toño Banerjee MD, PhD, FAASM. Diplomat of [place] [employer] Sleep Medicine, Sleep Medicine Board by [place] [employer] of Internal Medicine [employer] Development Technician of [facility] [place] Objective - Vital Signs Vital signs: Vital Signs Temp 97.7 F 06/06/23 12:03 Pulse 76 06/06/23 12:03 Resp 16 06/06/23 12:03 BP 118/69 06/06/23 12:03 Pulse Ox 98 06/06/23 12:03 FiO2 Intake & Output 06/05/23 06/06/23 06/06/23 18:59 06:59 18:59 Weight 91.172 kg
== END ==
LOC: 3 N SLEEP 11:47
PROVIDERS: ATTEND Internal Medicine
DX: G47.33 Obstructive sleep apnea (adult) (pediatric) (principal); G20.A1 Parkinson's disease without dyskinesia, without mention of fluctuations; E66.9 Obesity, unspecified; I10 Essential (primary) hypertension; E11.9 Type 2 diabetes mellitus without complications; E78.5 Hyperlipidemia, unspecified; K21.9 Gastro-esophageal reflux disease without esophagitis; Z79.84 Long term (current) use of oral hypoglycemic drugs; Z79.899 Other long term (current) drug therapy; Z95.2 Presence of prosthetic heart valve; Z87.09 Personal history of other diseases of the respiratory system; Z87.01 Personal history of pneumonia (recurrent); Z98.890 Other specified postprocedural states; Z68.31 Body mass index [BMI] 31.0-31.9, adult; Z99.89 Dependence on other enabling machines and devices; Z87.891 Personal history of nicotine dependence
CPT/HCPCS: 99212

== ENCOUNTER → 2024-01-29 | Outpatient (CLI) | payer MEDICARE, BC ==
[2024-01-29 12:06] LABS: African American GFR (CKD) 64 (>60 ml/min/1.73 sqM); Blood Urea Nitrogen 23 mg/dL (9-20); Non-African American GFR(CKD) 55 (>60 ml/min/1.73 sqM)
--- NOTE | 2024-01-29 15:54 | CT ---
EXAMINATION TYPE: CT ChestAbdPelvis w con CT DLP: 1699 mGycm, Automated exposure control for dose reduction was used. DATE OF EXAM: 01/29/2024 1:43 PM COMPARISON: Renal ultrasound 09/06/2022, CT chest 07/24/2011. CLINICAL INDICATION:Male, 79 years old with history of R63.4 ABNORMAL WEIGHT LOSS; PHH, Abnormal weig ht loss Technique: Multiple axial images of the chest, abdomen, and pelvis were obtained following the intrav enous administration of 80 mL Isovue-300. Oral contrast was administered. Two-dimensional coronal and sagittal reconstructions were obtained. Findings: CHEST: LUNGS/ PLEURA: No pneumothorax, focal consolidation. Trace left pleural effusion. Minimal bilateral l ower lobe dependent subsegmental atelectasis. Solid left upper lobe perihilar region 1.3 cm pulmonar y nodule (series 4, image 22). Previously measured 0.9 cm in 2012. Left lower lobe solid 0.8 cm pulmo nary nodule (series 4, image 25). Stable from prior examination 2011. AIRWAY: Patent and unremarkable.. HEART: Size within normal limits.No pericardial effusion. Moderate to severe coronary calcifications. Severe aortic valvular calcifications. MEDIASTINUM: No evidence of adenopathy. VASCULATURE: Stable aneurysm dilatation ascending thoracic aorta measuring up to 4.0 cm. Moderate at herosclerotic calcification of the aorta and its branches. MUSCULOSKELETAL: No acute osseous abnormalities. Median sternotomy wires. No aggressive osseous lesio n. Mild multilevel degenerative disc disease. SOFT TISSUES/LYMPH NODES: Unremarkable. LOWER NECK: No significant findings. ABDOMEN: ABDOMEN LIVER: Unremarkable GALLBLADDER AND BILE DUCTS: Gallbladder is unremarkable. No biliary dilatation. Trace suspected pneum obilia within the right hepatic lobe. PANCREAS: Unremarkable. SPLEEN: Unremarkable. ADRENAL GLANDS: Nonspecific thickening of the bilateral adrenal glands is stable dating back to 2011 and considered benign. KIDNEYS AND URETERS: No evidence of hydronephrosis or renal calculus. The kidneys enhance symmetrica lly. Right renal sinus cyst measuring up to 4.9 cm. Exophytic left mid kidney 1.9 cm cyst which is de creased in size in prior examination when it measured up to 3.8 cm. Contrast is demonstrated within b oth collecting systems on the delayed phase. There is a 1.2 cm nodule along the right lateroconal fas alise (series 3, image 62). PELVIS BLADDER: Unremarkable REPRODUCTIVE: Coarse calcifications of the prostate gland are identified. Median lobe hypertrophy of the prostate gland which indents upon the urinary bladder base. ABDOMEN & PELVIS STOMACH AND BOWEL: Stomach and duodenum are unremarkable. Enteric contrast reaches the mid small trang l. Mild gastric distention. Mildly redundant sigmoid colon. No focal bowel wall thickening or strandi ng inflammatory changes. No evidence of bowel obstruction. PERITONEUM: No evidence of pneumoperitoneum or free fluid. VASCULATURE: Moderate atherosclerotic calcifications are present throughout the abdominal aorta and i ts branches. No abdominal aortic aneurysm. MUSCULOSKELETAL: No acute osseous abnormalities. No aggressive osseous lesion. Grade 1 anterolisthesi s of L4-L5 without evidence for pars defects. Mild multilevel degenerative disc disease. LYMPH NODES: Mildly enlarged periportal lymph node measuring 1.4 cm short axis (series 3, image 61). This is stable to mildly smaller when compared to prior chest in 2012. Considered benign. No addition al lymphadenopathy. SOFT TISSUE/ABDOMINAL WALL: Small fat filled bilateral inguinal hernias. IMPRESSION: 1. There are 2 left lung pulmonary nodules measuring 1.3 cm (previously 0.9 cm) within the left uppe r lobe and 0.8 cm (previously 0.8 cm) within the left lower lobe. Further evaluation with PET/CT is r ecommended. 2. Nonspecific nodule identified within the right lateroconal fascia. 3. Trace suspected pneumobilia versus possible portal venous gas. Correlate clinically. 4. Stable ascending thoracic aortic aneurysm measured 4.0 cm dating back to 2011. 5. Trace left pleural effusion. [facility], , 01/29/2024 3:51 PM
== END | disposition home or self-care (01) ==
LOC: RADCTMAIN 11:14
PROVIDERS: ATTEND Internal Medicine
DX: I71.21 Aneurysm of the ascending aorta, without rupture (principal); R63.4 Abnormal weight loss; J90 Pleural effusion, not elsewhere classified; K40.20 Bilateral inguinal hernia, without obstruction or gangrene, not specified as recurrent; R91.1 Solitary pulmonary nodule; I70.0 Atherosclerosis of aorta; N40.0 Benign prostatic hyperplasia without lower urinary tract symptoms; N28.1 Cyst of kidney, acquired
CPT/HCPCS: 82565; 84520; 71260; 74177; 36415; Q9967

== ENCOUNTER → 2024-03-26 | Outpatient (CLI) | payer MEDICARE, BC ==
--- NOTE | 2024-03-28 15:31 | PE ---
EXAMINATION TYPE: PET CT fusion skull to thigh DATE OF EXAM: 03/26/2024 COMPARISON: 01/29/2024 CT chest abdomen pelvis Prior PET/CT: None CLINICAL INDICATION: Male, 79 years old with history of R91.8 SPN, TECHNIQUE: Following the intravenous administration of 10.40 mCi of F-18 FDG, whole body images are performed from the skull base to the midthigh. Images are reviewed on the computer in the coronal, a xial, and sagittal planes. Reconstructed rotating images are created on independent workstation and reviewed on the computer. A localization and attenuation correction CT is performed in conjunction with the PET scan. DLP: 819.80 mGycm SCAN: Initial Blood glucose: 91 mg/dL Average Mediastinum SUV: 2.40 Average Liver SUV: 2.43 FINDINGS: NECK: No abnormal uptake THORAX: No abnormal uptake. The nodule within the posterior left midlung, image 70, has an SUV of 0.79. ABDOMEN: No abnormal uptake PELVIS: No abnormal uptake OSSEOUS STRUCTURES: No abnormal uptake LOCALIZATION CT: Moderate vascular calcifications within the coronary vessels. May be a minimal poste rior left pleural effusion. COMPARISON: None IMPRESSION: 1. No suspicious uptake within the left lung nodule. Follow-up low-dose CT chest in one year can be p erformed. [facility], , 03/28/2024 3:28 PM
== END | disposition home or self-care (01) ==
LOC: RADPETMAIN 08:44
PROVIDERS: ATTEND Internal Medicine Critical Care Medicine
DX: R91.8 Other nonspecific abnormal finding of lung field (principal)
CPT/HCPCS: 78815; A9552